=== PATIENT | female | born 1965 | race Caucasian/White ===

== ENCOUNTER 2022-12-12 13:56 | Day surgery (SDC) | payer OTHER ==
[2022-12-12] VITALS (7 sets, daily range): BP systolic 105–150; BP diastolic 62–78
[~2022-12-12] VITALS: Ht 157.5 cm; Wt 87.5 kg
[2022-12-12] MEDS ORDERED: diphenhydrAMINE 25mg capsule PO PRN (14:10)
[2022-12-12] MEDS ORDERED: LORazepam 0.5 MG tablet PO PRN (14:10)
[2022-12-12] MEDS ORDERED: ISOS30TA84 PO (14:37)
[2022-12-12] MEDS ORDERED: CLOP75TA34 PO (14:37)
[2022-12-12] MEDS ORDERED: LORA-268 PO (14:37)
[2022-12-12] MEDS ORDERED: MULT-1085 PO (14:37)
[2022-12-12] MEDS ORDERED: RANO500T6 PO (14:37)
[2022-12-12] MEDS ORDERED: LISI5TAB22 PO (14:37)
[2022-12-12] MEDS ORDERED: GLUC-212 PO (14:37)
[2022-12-12] MEDS ORDERED: ATOR-2 PO (14:37)
[2022-12-12] MEDS ORDERED: ESOM40CA54 PO (14:37)
[2022-12-12] MEDS ORDERED: BISO5TAB20 PO (14:37)
[2022-12-12] MEDS ORDERED: CHOL100046 PO (14:38)
[2022-12-12] MEDS ORDERED: FERR-119 PO (14:39)
[2022-12-12] MEDS ORDERED: Tylenol Arthritis PO (14:39)
[2022-12-12 15:26] LABS: BASOPHILS % (AUTO) 0.7 % (0-1); EOSINOPHILS # (AUTO) 0.1 X10'3 (0-0.9); EOSINOPHILS % (AUTO) 2.4 % (0-6); HEMATOCRIT 38.2 % (35.0-45.0); HEMOGLOBIN 12.7 g/dl (12.0-16.0); LYMPHOCYTES # (AUTO) 1.5 X10'3 (1.1-4.8); LYMPHOCYTES % (AUTO) 26.1 % (21-51); MEAN CORPUSCULAR HEMOGLOBIN 30.5 PG (27.0-31.0); MEAN CORPUSCULAR HGB CONC 33.3 g/dL (33.0-36.5); MEAN CORPUSCULAR VOLUME 91.5 FL (78-98); MEAN PLATELET VOLUME 6.8 FL (7.4-10.4); MONOCYTES # (AUTO) 0.4 X10'3 (0-0.9); MONOCYTES % (AUTO) 7.6 % (2-12); NEUTROPHILS # (AUTO) 3.7 X10'3 (1.8-7.7); NEUTROPHILS % (AUTO) 63.2 % (42-75); PLATELET COUNT 328 X10'3 (140-440); RED BLOOD COUNT 4.18 X10'6 (4.20-5.60); RED CELL DISTRIBUTION WIDTH 13.1 % (11.5-14.5); WHITE BLOOD COUNT 5.8 X10'3 (4.5-11.0)
[2022-12-12 15:33] LABS: ANION GAP 10 (8-16); BLOOD UREA NITROGEN 18 MG/DL (7-18); BUN/CREATININE RATIO 23.7 (6.6-38.0); CHLORIDE 105 MMOL/L (99-107); CREATININE 0.76 MG/DL (0.40-0.90); GLUCOSE 89 MG/DL (70-104); POTASSIUM 3.9 MMOL/L (3.5-5.1); SODIUM 138 MMOL/L (135-145); TOTAL CARBON DIOXIDE 23.4 MMOL/L (24-32); eGFR 78 ML/MIN
[2022-12-12 15:36] LABS: APTT 26 SECONDS (22-32)
[2022-12-12] MEDS ORDERED: fentaNYL/PF 50MCG/1 ML 2ML syringe ONE (16:38)
[2022-12-12] MEDS ORDERED: iohexol 350MG/ML 100ml bottle IV ONE (16:38)
[2022-12-12] MEDS ORDERED: midazolam 1 mg/ML 2ml injection ONE (16:38)
[2022-12-12] MEDS ORDERED: LIDOcaine 1% 30ml preserv. free vial ONE (16:38)
[2022-12-12] MEDS ORDERED: iohexol 350 MG/ML 50ML vial IV ONE (16:38)
[2022-12-12] MEDS ORDERED: proCHLORperazine 10 MG/2 ml inj ONE (16:56)
[2022-12-12] MEDS ORDERED: HYDROcodone/acetaminophen 10/325mg tab PO PRN (17:55)
[2022-12-12] MEDS ORDERED: HYDROcodone/acetaminophen 5mg/325mg tablet PO PRN (17:55)
[2022-12-13] MEDS ORDERED: pneumococcal 23-VAL P-sac vacc 25 mcg/0.5ml vial IMVAC ONE (15:30)
== END 2022-12-12 19:25 | disposition home or self-care (01) ==
LOC: SSTAY O 13:56
PROVIDERS: ATTEND Student in an Organized Health Care Education/Training Program
DX: R94.39 Abnormal result of other cardiovascular function study (principal); I25.10 Atherosclerotic heart disease of native coronary artery without angina pectoris; I10 Essential (primary) hypertension; G47.33 Obstructive sleep apnea (adult) (pediatric); E78.5 Hyperlipidemia, unspecified; E11.9 Type 2 diabetes mellitus without complications; K21.9 Gastro-esophageal reflux disease without esophagitis; F10.10 Alcohol abuse, uncomplicated; Z95.1 Presence of aortocoronary bypass graft; Z98.890 Other specified postprocedural states; Z95.828 Presence of other vascular implants and grafts; Z88.1 Allergy status to other antibiotic agents; Z79.899 Other long term (current) drug therapy
CPT/HCPCS: 36415; 80048; 85025; 85610; 85730; 93005; 93459; 99152; C1751; C1760; C1769; C1894; J0780; J1644; J2250; J3010; J3490; J7030; Q0163; Q9967; 90732; 99153

== ENCOUNTER 2023-08-21 12:14 | Emergency (ER) | payer OTHER ==
[~2023-08-21] VITALS: Ht 157.5 cm; Wt 95.0 kg
[~2023-08-21 12:14] MED LIST: ATOR-2 PO; BISO5TAB20 PO; CHOL100046 PO; CLOP75TA34 PO; ESOM40CA54 PO; FERR-119 PO; GLUC-212 PO; ISOS30TA84 PO; LISI5TAB22 PO; LORA-268 PO; MULT-1085 PO; RANO500T6 PO; Tylenol Arthritis PO
[2023-08-21 12:19] VITALS: BP 156/76; PULSE 67; TEMP 97; O2SAT 98
[2023-08-21] MEDS ORDERED: CYCL-1 PO (14:28)
[2023-08-21] MEDS ORDERED: NAPR-56 PO (14:28)
[2023-08-21] MEDS ORDERED: ketorolac trometh inj. 60 MG/2 ML VIAL IM ONE (14:30)
[2023-08-21 14:39] VITALS: RESP 16
== END 2023-08-21 15:19 | disposition home or self-care (01) ==
LOC: ER 12:15
DX: S39.012A Strain of muscle, fascia and tendon of lower back, initial encounter (principal); X58.XXXA Exposure to other specified factors, initial encounter; Y93.89 Activity, other specified; Y92.89 Other specified places as the place of occurrence of the external cause; Y99.8 Other external cause status
CPT/HCPCS: 96372; 99283; J1885

== ENCOUNTER 2025-07-03 10:33 | Emergency (ER) | payer OTHER ==
[~2025-07-03] VITALS: Ht 154.9 cm; Wt 82.7 kg
[~2025-07-03 10:33] MED LIST changes: +CYCL-1 PO; -ESOM40CA54 PO; +ESOM40CA66 PO
[2025-07-03 10:39] VITALS: TEMP 97.3
--- NOTE | 2025-07-03 11:43 | RADIOLOGY REPORT ---
DI LUMBAR SPINE LIMITED, HISTORY: LOWER BACK PAIN COMPARISON: None TECHNICAL DATA: Frontal and lateral views were obtained of the lumbar spine. FINDINGS: There are 5 lumbar type vertebral bodies. Lumbar curvature is within normal limits. There is no spond ylolisthesis. Vertebral body heights are maintained. Disk heights are narrow. The facet joints appear degenerative. The sacroiliac joints are symmetric. Paraspinal soft tissues are within normal limits. IMPRESSION: No acute fracture or dislocation of the lumbar spine.
[2025-07-03 12:29] LABS: LEUKOCYTE ESTERASE ,URINE NEGATIVE (Neg); NITRITES, URINE NEGATIVE (Neg); OCCULT BLOOD,URINE NEGATIVE (Neg)
[2025-07-03 12:31] LABS: UA COLLECTION TYPE URINAL
[2025-07-03] MEDS: ketorolac trometh 15mg/ml vial 15 MG/ML ML IM ONE (12:38)
[2025-07-03] MEDS ORDERED: CYCL-1 PO (13:57)
[2025-07-03] MEDS ORDERED: LIDO700A47 TOP (13:57)
--- NOTE | 2025-07-03 14:04 | Physician Documentation ---
History of Present Illness ~ Chief Complaint: Back Pain Stated Complaint: BACK PAIN Time Seen by MD: 12:34 OK to notify your PCP?: Yes Primary Medical Doctor: DARIEN MANN Source: patient Mode of Arrival: POV Exam Limitations: no limitations HPI 60-year-old female presents from home by ambulance for right low back pain which started this morning after she was reaching to pick something up. She states that she has had muscle strains similar to 6 times in the past 5 years. She attempted to use a heating pad at home with no relief. She denies any fall or known trauma. She denies any pain radiation down either leg. She denies any saddle anesthesia, or loss of bowel or bladder. Medication Reconciliation Allergies: Coded Allergies: cefaclor (Verified Allergy, Intermediate, "VIOLENTLY" SICK TO MY STOMACH, 07/03/25) amoxicillin (Verified Allergy, Unknown, 07/03/25) Scheduled Atorvastatin Calcium (Atorvastatin Calcium), 1 TAB PO HS, (Reported) Bisoprolol Fumarate (Bisoprolol Fumarate), 1 TAB PO DAILY, (Reported) Cholecalciferol (Vitamin D3) (Vitamin D3), 1 CAP PO DAILY, (Reported) Clopidogrel Bisulfate (Clopidogrel), 1 TAB PO DAILY, (Reported) Cyclobenzaprine* (Cyclobenzaprine*), 1 TAB PO TID Cyclobenzaprine* (Cyclobenzaprine*), 1 TAB PO Q8H Esomeprazole Magnesium (Esomeprazole Magnesium), 1 CAP PO DAILY, (Reported) Ferrous Sulfate (Iron), 1 TAB PO DAILY, (Reported) Glucosam/Chondroit/C/Manganese (Cosamin Ds Capsule), 500 MG PO DAILY, (Reported) Isosorbide Mononitrate (Isosorbide Mononitrate Er), 0.5 TAB PO DAILY, (Reported) Lidocaine (Lidocaine), 1 PATCH TOP DAILY Lisinopril (Lisinopril), 1 TAB PO DAILY, (Reported) Lorazepam (Ativan), 0.5 TAB PO DAILY, (Reported) Multivitamin (Multi Vitamin Daily), 1 TAB PO DAILY, (Reported) Ranolazine (Ranolazine ER), 1 TAB PO BID, (Reported) [Tylenol Arthritis], 500 MG PO BID, (Reported) Physical Exam Physical Exam Vital Signs: RN Vital Signs have been reviewed: Yes, Temperature: 97.3, Source: Temporal, Heart Rate: 63, Respiratory Rate: 15, BP: 165/81, Pulse Oximetry: 99, Weight: 82.730 Oxygen Flow Rate: 0 Pulse Oximetry Reflects: adequate oxygenation Physical Exam General: Alert, no distress. HEENT: No injection, moist mucous membranes. Neck: Full range of motion. Respiratory: No respiratory distress, equal chest rise and fall. Chest: No accessory muscle use. Cardiovascular: Regular rate and rhythm. Gastrointestinal: Nondistended. Extremities: Normal range of motion, no deformity. Back: Tenderness to palpation along lumbar and sacral muscles on the right side. No midline tenderness. No CVA tenderness Neurologic: Oriented x4. Psychiatric: Normal mood and affect. Skin: Normal color, warm and dry. Progress Results/Orders Reviewed/noted all lab results: Yes Results/Orders Completed Orders - SHIRA MOSELEY GASTROINTESTINAL TECHNICIAN Ketorolac Trometh 15mg/Ml Vial (Toradol (07/03/25 12:35) Lidocaine 5% Patch (Lidoderm 5% Patch) (07/03/25 12:35) Acetaminophen 325mg Tablet (Tylenol Tabl (07/03/25 12:35) Cyclobenzaprine Tablet (Flexeril Tablet) (07/03/25 14:00) Medications Received in ER Medications (Trade) Dose Ordered Sig/Nilson Route PRN Reason Start Time Stop Time Status Last Admin Dose Admin (Toradol injection) 15 mg ONCE ONCE IM 07/03/25 12:35 07/03/25 12:36 DC 07/03/25 12:38 15 MG (Lidoderm 5% Patch) 1 patch ONCE ONCE TP 07/03/25 12:35 07/03/25 12:36 DC 07/03/25 12:41 1 PATCH (Tylenol tablet) 650 mg ONCE ONCE PO 07/03/25 12:35 07/03/25 12:36 DC 07/03/25 12:54 650 MG Vital Signs 07/03/25 07/03/25 07/03/25 10:39 11:17 12:38 Temp 97.3 Pulse 61 63 Resp 18 15 15 B/P (MAP) 174/78 165/81 (109) Pulse Ox 99 99 O2 Flow Rate 0 Laboratory Tests Test 07/03/25 12:13 Urine Specimen Description Urinal Urine Color Yellow Urine Clarity Clear Urine pH 8.0 Urine Specific [place] 1.010 Urine Protein Negative Urine Glucose (UA) Negative Urine Ketones Negative Urine Occult Blood Negative Urine Nitrite Negative Urine Bilirubin Negative Urine Urobilinogen 0.2 Urine Leukocyte Esterase Negative Urine Culture Indicated Not ind Volume Urine Centrifuged 10 ml Urine Comment EKG/XRAY/CT/US/VASC/MRI Bone/Soft Tissue X-Ray (Spine) : Additional Comment Lumbar spine x-ray as interpreted by me; no acute fracture, no soft tissue swelling, no obvious deformity. Medical Decision Making Additional info obtained from: old records Findings She is here for muscle tenderness and muscle strain on the right side of her low back. This occurred after she was reaching for something. She says that she was unable to ambulate due to the pain is so she called an ambulance to bring her in. While here in the department nurse's ordered a x-ray of the lumbar spine which was negative for any acute fracture. Her urinalysis was negative for UTI. I gave Toradol, lidocaine patch, flexeril and Tylenol for pain relief which she expresses she has some pain relief from it. I have prescribed lidocaine patches as well as Flexeril to her pharmacy. We discussed that she should continue using her heating pad and that this can take time for that muscle to release itself. He is given follow up instructions and return instructions. Differential Dx:Considerations: Include: Aortic dissection, Fracture, Pyelonephritis, Urinary obstruction, Urolithiasis Differential Diagnosis Cauda equina. Lumbar radiculopathy. Departure Disposition: 01 HOME / SELF CARE / HOMELESS Impression: Primary Impression: Lumbosacral strain Condition: Stable Discharge Instructions: Lumbosacral Strain Additional Instructions: Please follow up with her primary care provider within the next week and return back here for any new or worsening symptoms. Please continue to use the heating pad as this can be helpful to release at muscle. You can use Tylenol for pain relief at home but I would avoid any further NSAID use due to you taking Plavix. Referrals: NO PRIMARY CARE PROVIDER (PCP) Prescriptions Lidocaine (Lidocaine) 5 % Adh..patch 1 PATCH TOP DAILY for 30 Days, #30 PATCH 0 Refills Prov: SHIRA MOSELEY 07/03/25 Cyclobenzaprine* (Cyclobenzaprine*) 10 Mg Tablet 1 TAB PO Q8H for muscle spasms for 10 Days, #30 TAB 0 Refills Prov: SHIRA MOSELEY 07/03/25 Education Educated: Patient Educated regarding: diagnosis, treatment, prognosis, need for follow up Additional Comment Medical Screen Exam This patient recieved a medical screening examination. After reviewing the individual's medical complaints with presenting symptoms and performing an appropriate physical examination, it was determined that no immediate life- threatening emergency medical condition is present. This individual is also not a women having contractions. Signature Scribe Signature: . Attestation: Scribed for Shira Moseley by Shira Enamorado NP . 07/03/25 14:06 Parts of this note were created using [employer] voice recognition software program. While efforts were made to correct any mistakes made by this voice recognition software program, nonsensical phrases may remain in this note. In addition, there may be errors and syntax, grammar, content and spelling. SHIRA MOSELEY Jul 03, 2025 14:04
[2025-07-03 14:29] VITALS: BP 151/68; PULSE 55; RESP 15; O2SAT 100
== END 2025-07-03 14:41 | disposition home or self-care (01) ==
LOC: ER 10:34
DX: S39.012A Strain of muscle, fascia and tendon of lower back, initial encounter (principal); Z88.0 Allergy status to penicillin; Z88.1 Allergy status to other antibiotic agents; Z88.8 Allergy status to other drugs, medicaments and biological substances; X58.XXXA Exposure to other specified factors, initial encounter; Y93.89 Activity, other specified; Y92.89 Other specified places as the place of occurrence of the external cause; Y99.8 Other external cause status
CPT/HCPCS: 72100; 81003; 96372; 99284; J1885